=== PATIENT | female | born 1995 | race Caucasian/White ===

== ENCOUNTER 2016-06-22 12:40 | Emergency (ER) | payer OTHER ==
[~2016-06-22] VITALS: Ht 170.2 cm; Wt 78.0 kg
[2016-06-22 12:51] VITALS: Ht 170.2 cm; Wt 78.0 kg
[2016-06-22] MEDS ORDERED: MoRPHine SULFATE 4 MG/ML 1 ML CARP\\VIAL IV STA ×3 (13:01→14:39)
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
[2016-06-22 13:51] LABS: BASO % 0.3 %; BASO ABS # 0.02 K/uL (0-0.2); COMPLETE YES; EOS % 1.4 %; HEMATOCRIT 44.1 % (37-47); IG% 0.3 %; LYMPH ABS # 2.03 K/uL (1.2-3.4); MEAN CELL VOLUME 89.8 fL (80-100); MEAN CORPUSCULAR HGB CONC 34.5 g/dl (32-36); MEAN PLATELET VOLUME 10.4 fL (7.4-10.4); MONO % 7.1 %; NEUT % 61.9 %; PLATELET COUNT 227 K/uL (130-400); RED BLOOD COUNT 4.91 M/uL (4.2-5.4); WHITE BLOOD COUNT 7.01 K/uL (4.8-10.8)
[2016-06-22 14:12] LABS: BUN/CREATININE RATIO 12.8 (10-20); CALCIUM 9.3 mg/dl (8.5-10.1); CREATININE 0.79 mg/dl (0.60-1.20); POTASSIUM 3.9 mmol/L (3.5-5.1)
[2016-06-22 14:13] LABS: PREG INTERNAL NEGATIVE QC NEG CLEAR BACKGROUND; PREG INTERNAL POSITIVE QC POS CONTROL LINE
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
--- NOTE | 2016-06-22 14:50 | DIAGNOSTIC IMAGING REPORT ---
LEFT WRIST 2 VIEWS CLINICAL HISTORY: Trauma. Left wrist injury. FINDINGS: AP and crosstable lateral views of the left wrist are obtained. No prior studies are available for comparison at the time of dictation. The skeletal structures are well mineralized. There is an impacted and comminuted fracture of the distal radial metaphysis with intra-articular extension and posteriorly distracted fragments. There is apex volar angulation, as well as mild overriding of the fragments. There is also a comminuted fracture through the distal ulnar metaphysis with anterior dislocation of the ulna at the distal radioulnar joint. Overlying soft tissue edema is noted. No carpal bone fracture is identified. The radiocarpal articulation appears maintained. IMPRESSION: 1. Distal radial and ulnar fractures as detailed above with overlying soft tissue edema. 2. There is dislocation at the distal radioulnar joint. Electronically signed by: Mich Rizzo M.D. 06/22/2016 2:49 PM Dictated Date/Time: 06/22/2016 2:47 PM
--- NOTE | 2016-06-22 14:51 | DIAGNOSTIC IMAGING REPORT ---
LEFT ELBOW 3 VIEWS CLINICAL HISTORY: Trauma. FINDINGS: 3 views of the left elbow are obtained. No prior studies are available for comparison at the time of dictation. The skeletal structures are well mineralized. There is no radiographic evidence of left elbow fracture. The joint spaces of the elbow appear maintained. There is no evidence of joint effusion. The overlying soft tissues are within normal limits. IMPRESSION: There is no radiographic evidence of left elbow fracture. Electronically signed by: Mich Rizzo M.D. 06/22/2016 2:50 PM Dictated Date/Time: 06/22/2016 2:49 PM
--- NOTE | 2016-06-22 14:53 | DIAGNOSTIC IMAGING REPORT ---
CERVICAL SPINE 2 VIEWS CLINICAL HISTORY: Trauma. FINDINGS: AP and lateral views of the cervical spine are obtained. No prior studies are available for comparison at the time of dictation. The skeletal structures are well mineralized. There is no radiographic evidence of fracture or subluxation on this 2 view examination. The spinolaminar line is preserved. Vertebral body height and alignment are maintained from C2 to C6. C7 is not well assessed due to the overlying shoulders. There is straightening of the cervical lordosis. The spinous processes appear intact. The intervertebral disc spaces are normal. The prevertebral soft tissues are within normal limits. Visualized apical lung parenchyma appears clear. IMPRESSION: There is no radiographic evidence of fracture involving the cervical spine on this two-view examination. If there is strong clinical concern for occult fracture then a CT scan of the cervical spine should be considered. Electronically signed by: Mich Rizzo M.D. 06/22/2016 2:52 PM Dictated Date/Time: 06/22/2016 2:50 PM
[2016-06-22] MEDS ORDERED: BCPILLS PO (15:48)
[2016-06-22] MEDS ORDERED: AMT50 PO (15:48)
[2016-06-22] MEDS ORDERED: FENTANYL CITRATE INJ 50 MCG/1 ML 2 ML VIAL ONE (16:16)
[2016-06-22] MEDS ORDERED: MIDAZOLAM HCL 1 MG/ML 2ML VIAL ONE (16:16)
[2016-06-22] MEDS ORDERED: ONDANSETRON INJ 2 MG/ML 2 ML VIAL ONE (16:16)
[2016-06-22] MEDS ORDERED: LIDOCAINE HCL 2% 2 ML VIAL (20MG/ML) ONE (16:16)
[2016-06-22] MEDS ORDERED: DEXAMETHASONE SOD INJ 4 MG/ML VIAL ONE (16:16)
[2016-06-22] MEDS ORDERED: PROPOFOL IV EMULSION 10 MG/ML 20 ML VIAL IV ONE (16:16)
[2016-06-22] MEDS ORDERED: SUCCINYLCHOLINE CHLORIDE 20 MG/ML 10 ML VIAL IV ONE (16:16)
[2016-06-22] MEDS ORDERED: CEFAZOLIN SOD 1000MG/55 ML D5W IV ONE (16:45)
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
[2016-06-22 16:46] VITALS: O2SAT 96
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
[2016-06-22] MEDS ORDERED: BUPIVACAINE/EPINEPHRINE 0.5% MPF 1:200,000 30 ML VIAL ONE (16:58)
[2016-06-22] MEDS ORDERED: HYDROmorphone INJ 2 MG/ML SYR/VIAL ONE (17:15)
[2016-06-22] MEDS ORDERED: GLYCOPYRROLATE INJ 0.2 MG/ML VIAL ONE (17:31)
[2016-06-22] MEDS ORDERED: ROCURONIUM BROMIDE 10 MG/ML 5 ML VIAL ONE (17:31)
[2016-06-22] MEDS ORDERED: NEOSTIGMINE METHYLSULFATE 5 MG/5 ML SYR ONE (17:31)
[2016-06-22] MEDS ORDERED: SODIUM CHLORIDE 0.9% 1000ML 1,000 ML IV SCH (18:57)
[2016-06-22] MEDS ORDERED: OXYC-57 PO (18:59)
--- NOTE | 2016-06-22 18:59 | [facility] Post Operative Brief Note ---
Immediate Operative Summary Operative Date Jun 22, 2016. Pre-Operative Diagnosis Left wrist displaced comminuted distal radius/ulna fracture. Post-Operative Diagnosis Same as preop Procedure(s) Performed Left Distal Radius Fracture Open Reduction Internal Fixation Surgeon Dr. Kris Hatch Shipping Clerk/Admin Surgeon(s) Robert Clemente PA-C Findings as above Specimens none, Per Surgeon Complication(s) None Disposition Recovery Room / PACU
[2016-06-22] MEDS ORDERED: OXYCODONE/ACETAMINOPHEN 5-325 TAB PO PRN ×2 (19:00)
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
--- NOTE | 2016-06-22 19:16 | DIAGNOSTIC IMAGING REPORT ---
INTRAOPERATIVE FLUOROSCOPIC IMAGES OF THE LEFT WRIST CLINICAL HISTORY: Left wrist internal fixation. COMPARISON STUDY: Left wrist radiographs June 22, 2016. Fluoroscopy time: 137 seconds. FINDINGS: 2 fluoroscopic images demonstrate placement of a distal left radial plate and screws which fixate the distal left radial fracture. Fracture alignment has markedly improved and is near anatomic. Radioulnar joint alignment has also improved. Alignment of the ulnar fracture also appears improved. IMPRESSION: Expected findings following distal left radial internal fixation. Electronically signed by: South Rodriguez M.D. 06/22/2016 7:15 PM Dictated Date/Time: 06/22/2016 7:14 PM
[2016-06-22] MEDS ORDERED: HYDROmorphone INJ 1 MG/ML SYR IV PRN (19:30)
[2016-06-22] MEDS ORDERED: PROMETHAZINE HCL INJ 12.5 MG in SODIUM CHLORIDE 0.9% 50ML 50 ML IV PRN (19:30)
[2016-06-22] MEDS ORDERED: ONDANSETRON INJ 2 MG/ML 2 ML VIAL IV PRN (19:30)
[2016-06-22] MEDS ORDERED: EpHEDrine SULFATE INJ 50 MG/ML AMP IV PRN (19:30)
[2016-06-22] MEDS ORDERED: NALOXONE HCL 0.4 MG/1 ML VIAL/CARP IV PRN (19:30)
[2016-06-22] MEDS ORDERED: KETOROLAC TROMETHAMINE 30 MG/ML VIAL IV. PRN (19:30)
[2016-06-22] MEDS ORDERED: ATROPINE SULFATE 0.1 MG/ML 5ML SYR IV PRN (19:30)
[2016-06-22] MEDS ORDERED: KETOROLAC TROMETHAMINE 30 MG/ML VIAL ONE (19:35)
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
[2016-06-22 19:50] VITALS: BP 126/84; PULSE 82; TEMP 36.4; O2SAT 99
[2016-06-22] MEDS ORDERED: NURSING VERBAL MED ORDER ONE (20:00)
[2016-06-22 20:20] VITALS: BP 139/69; PULSE 71; TEMP 36.2; O2SAT 98
[2016-06-22] MEDS ORDERED: PERCOCET HOME PACK PO SCH (20:30)
[2016-06-22 20:40] VITALS: BP 127/87; PULSE 93; TEMP 36.4; O2SAT 97
--- NOTE | 2016-06-22 20:51 | Anesthesiology Progress Note ---
Anesthesia Post Op Note Date & Time Jun 22, 2016 at 20:50 Vital Signs Pain Intensity: 0 Vital Signs Past 12 Hours Date Time Temp Pulse Resp B/P Pulse Ox O2 Delivery O2 Flow Rate FiO2 06/22/16 20:20 36.2 71 17 139/69 98 Room Air 06/22/16 19:50 36.4 82 17 126/84 99 Room Air 06/22/16 19:45 36.2 73 18 131/73 100 Room Air 06/22/16 19:35 74 17 129/78 100 Room Air 06/22/16 19:25 80 16 128/65 100 Mask 10 06/22/16 19:15 91 15 133/68 98 Mask 10 06/22/16 19:08 36.2 93 16 140/64 100 Mask 10 06/22/16 16:46 94 16 129/77 96 06/22/16 14:48 98 16 139/88 98 06/22/16 12:51 36.5 92 16 160/87 96 Room Air Notes Mental Status: alert / awake / arousable, participated in evaluation Pt Amnestic to Procedure: Yes Nausea / Vomiting: adequately controlled Pain: adequately controlled Airway Patency, RR, SpO2: stable & adequate BP & HR: stable & adequate Hydration State: stable & adequate Anesthetic Complications: no major complications apparent
[2016-06-23] MEDS ORDERED: CEFAZOLIN IV 1,000 MG in DEXTROSE 5% 50ML 50 ML IV SCH (06:00)
== END 2016-06-22 20:55 | disposition home or self-care (01) ==
LOC: EDBD 12:40 → C.EDB 12:47
DX: S52.502A Unspecified fracture of the lower end of left radius, initial encounter for closed fracture (principal); V09.9XXA Pedestrian injured in unspecified transport accident, initial encounter; Z79.899 Other long term (current) drug therapy; Z88.2 Allergy status to sulfonamides